=== PATIENT | female | born 1960 | race Caucasian/White ===

== ENCOUNTER 2020-08-19 13:01 | Outpatient (REF) | payer OTHER, SELFPAY ==
[2020-08-19 13:11] VITALS: BP 136/53; PULSE 63; RESP 16; TEMP 36.6; O2SAT 98
[2020-08-19 13:21] VITALS: BMI 29.9
[2020-08-19 14:13] VITALS: BP 151/53; PULSE 58; RESP 16; O2SAT 98
== END 2020-08-19 13:02 | disposition home or self-care (01) ==
LOC: HO.MS 13:01
PROVIDERS: PCP Pediatrics; Visit Provider Ophthalmology
PROC: (CPT 11442; principal; 2020-08-19 14:10)
DX: L56.8 Other specified acute skin changes due to ultraviolet radiation (principal); L72.0 Epidermal cyst; X32.XXXA Exposure to sunlight, initial encounter; Y93.9 Activity, unspecified; Y92.9 Unspecified place or not applicable; Y99.8 Other external cause status; Z83.511 Family history of glaucoma; H52.4 Presbyopia; J45.909 Unspecified asthma, uncomplicated; Z79.899 Other long term (current) drug therapy
CPT/HCPCS: 11442 ×2; 88305; 88331; 88332